=== PATIENT | female | born 1940 | race Caucasian/White ===

== ENCOUNTER 2019-07-07 05:50 | Outpatient (RCR) | payer MEDICARE, SELFPAY | END 2019-07-12 10:00 | disposition home or self-care (01) | LOC: ONCRAD 05:50 | PROVIDERS: Family Provider Family Medicine; Visit Provider Radiology Radiation Oncology | DX: Z51.0 Encounter for antineoplastic radiation therapy (principal); C34.2 Malignant neoplasm of middle lobe, bronchus or lung; R50.9 Fever, unspecified | CPT/HCPCS: 77295; 77300; 77334; 77336; 77370; 77386 ×2 ==

== ENCOUNTER 2019-07-20 05:42 | Outpatient (RCR) | payer MEDICARE, SELFPAY | END 2019-08-04 00:01 | LOC: ONCRAD 05:42 | PROVIDERS: Family Provider Family Medicine; Visit Provider Radiology Radiation Oncology | DX: Z51.0 Encounter for antineoplastic radiation therapy (principal); C34.2 Malignant neoplasm of middle lobe, bronchus or lung; L58.9 Radiodermatitis, unspecified; W88.1XXA Exposure to radioactive isotopes, initial encounter | CPT/HCPCS: 77014 ×2; 77373 ×2 ==